=== PATIENT | female | born 1985 ===

== ENCOUNTER → 2020-06-21 08:40 | Outpatient (BNVA) | payer MEDICAID, SELFPAY | PROVIDERS: PCP Physician Assistant; Visit Provider Internal Medicine Gastroenterology | DX: Z76.89 Persons encountering health services in other specified circumstances (principal) ==

== ENCOUNTER → 2020-06-22 09:54 | Outpatient (BNVA) | payer MEDICAID, SELFPAY | PROVIDERS: PCP Physician Assistant; Referring Provider Physician Assistant; Visit Provider Internal Medicine Gastroenterology | DX: Z11.0 Encounter for screening for intestinal infectious diseases (principal) | CPT/HCPCS: 99211 ==

== ENCOUNTER 2020-06-22 15:28 | Outpatient (REF) | payer MEDICAID, SELFPAY ==
[2020-06-23 13:31] LABS: H Pylori Breath Test DETECTED (NOT DETECTED)
== END 2020-06-22 15:29 | disposition home or self-care (01) ==
LOC: HO.LNP 15:28
PROVIDERS: Visit Provider Internal Medicine Gastroenterology
DX: R10.9 Unspecified abdominal pain (principal)
CPT/HCPCS: 83013

== ENCOUNTER → 2020-07-16 10:37 | Outpatient (BNVA) | payer MEDICAID, SELFPAY | PROVIDERS: PCP Physician Assistant; Referring Provider Physician Assistant; Visit Provider Internal Medicine Endocrinology, Diabetes & Metabolism | DX: Z13.89 Encounter for screening for other disorder (principal) | CPT/HCPCS: 99212 ==

== ENCOUNTER 2020-07-18 10:53 | Outpatient (REF) | payer MEDICAID, SELFPAY ==
[2020-07-18 12:56] LABS: Alanine Aminotransferase 21 U/L (0-31); Albumin Level 3.8 g/dL (3.5-5.0); Alkaline Phosphatase 79 U/L (39-117); Anion Gap 11 (12-20); Aspartate Amino Transferase 15 U/L (5-31); Bilirubin Total 0.3 mg/dL (0.0-1.0); Blood Urea Nitrogen 7 mg/dL (9-16); Calcium 8.8 mg/dL (8.4-10.2); Carbon Dioxide 26 mmol/L (22-29); Chloride 105 mmol/L (96-108); Estimated Glomerular Filt Rate > 60; Glucose Random 102 mg/dL (60-115); Potassium 4.1 mmol/l (3.3-5.1); Sodium 138 mmol/L (135-145); Total Protein 6.4 g/dL (6.5-8.0)
== END 2020-07-18 10:54 | disposition home or self-care (01) ==
LOC: HO.LAB 10:53
PROVIDERS: Visit Provider Internal Medicine Endocrinology, Diabetes & Metabolism
DX: E27.40 Unspecified adrenocortical insufficiency (principal)
CPT/HCPCS: 80053

== ENCOUNTER 2020-09-11 10:18 | Outpatient (REF) | payer MEDICAID, SELFPAY ==
[2020-09-12 14:18] LABS: H Pylori Breath Test DETECTED (NOT DETECTED)
== END 2020-09-11 10:19 | disposition home or self-care (01) ==
LOC: HO.LNP 10:18
PROVIDERS: PCP Physician Assistant; Visit Provider Internal Medicine Gastroenterology
DX: A04.8 Other specified bacterial intestinal infections (principal)
CPT/HCPCS: 83013; 99211

== ENCOUNTER 2020-10-31 08:11 | Outpatient (REF) | payer MEDICAID, SELFPAY ==
--- NOTE | ~2020-10-31 | US_ITS ---
EXAMINATION: US ABDOMEN COMPLETE CLINICAL INFORMATION: Right upper quadrant pain x1 month. COMPARISON: None TECHNIQUE: Real-time imaging of the abdominal viscera. FINDINGS: PANCREAS: Normal. ABDOMINAL AORTA: The proximal, mid, and distal segments are normal in caliber. INFERIOR VENA CAVA: Visualized portions are normal. LIVER: The liver is normal in size. The liver contour is normal. Parenchymal echogenicity may be slightly increased.. No focal hepatic lesion. There is no intrahepatic biliary duct dilatation seen. GALLBLADDER: Normal. The gallbladder is physiologically distended without evidence of stones, sludge, polyps, wall thickening or pericholecystic fluid. COMMON BILE DUCT: Normal in caliber measuring 0.28 cm in diameter. RIGHT KIDNEY: There is a 1.3 cm cyst in the midpole. No hydronephrosis or renal calculi. The kidney measures 10.9 cm in maximum dimension. LEFT KIDNEY: Normal. No hydronephrosis. No renal calculi or focal parenchymal lesions. The kidney measures 10.0 cm in maximum dimension. SPLEEN: Normal The spleen measures 6.9 cm in maximum dimension. FREE FLUID: None. US/US abdomen complete IMPRESSION: Slightly echogenic liver. Small right renal cyst.
== END 2020-10-31 08:12 | disposition home or self-care (01) ==
LOC: HO.HMGCX 08:11
PROVIDERS: Visit Provider Internal Medicine Gastroenterology
DX: R10.11 Right upper quadrant pain (principal); G89.29 Other chronic pain
CPT/HCPCS: 76700

== ENCOUNTER → 2020-11-08 11:31 | Outpatient (BNVA) | payer MEDICAID, SELFPAY | PROVIDERS: PCP Physician Assistant; Visit Provider Internal Medicine Endocrinology, Diabetes & Metabolism | DX: E27.40 Unspecified adrenocortical insufficiency (principal); E55.9 Vitamin D deficiency, unspecified; M85.80 Other specified disorders of bone density and structure, unspecified site; Z86.39 Personal history of other endocrine, nutritional and metabolic disease | CPT/HCPCS: 99212 ==

== ENCOUNTER 2020-11-08 12:09 | Outpatient (REF) | payer MEDICAID, SELFPAY ==
[2020-11-08 13:30] LABS: Alanine Aminotransferase 28 U/L (0-31); Albumin Level 3.8 g/dL (3.5-5.0); Alkaline Phosphatase 68 U/L (39-117); Anion Gap 11 (12-20); Aspartate Amino Transferase 21 U/L (5-31); Bilirubin Total 0.5 mg/dL (0.0-1.0); Blood Urea Nitrogen 8 mg/dL (9-16); Calcium 9.2 mg/dL (8.4-10.2); Carbon Dioxide 23 mmol/L (22-29); Chloride 110 mmol/L (96-108); Estimated Glomerular Filt Rate > 60; Glucose Random 78 mg/dL (60-115); Sodium 140 mmol/L (135-145); Total Protein 6.2 g/dL (6.5-8.0)
[2020-11-08 13:53] LABS: Vitamin D 25-OH Total 27.8 ng/mL (>30)
== END 2020-11-08 12:10 | disposition home or self-care (01) ==
LOC: HO.10HDL 12:09
PROVIDERS: Visit Provider Internal Medicine Endocrinology, Diabetes & Metabolism
DX: E27.40 Unspecified adrenocortical insufficiency (principal)
CPT/HCPCS: 36415; 80053; 82306

== ENCOUNTER 2020-11-26 | Outpatient (REF) | payer MEDICAID, SELFPAY ==
[2020-11-28 14:16] LABS: H Pylori Breath Test NOT DETECTED (NOT DETECTED)
== END 2020-11-26 00:01 | disposition home or self-care (01) ==
LOC: HO.LNP
PROVIDERS: Visit Provider Internal Medicine Gastroenterology
DX: R10.13 Epigastric pain (principal); Z11.0 Encounter for screening for intestinal infectious diseases
CPT/HCPCS: 83013

== ENCOUNTER 2020-11-26 11:37 | Outpatient (REF) | payer MEDICAID, SELFPAY | END 2020-11-26 11:38 | disposition home or self-care (01) | LOC: CF 11:37 | PROVIDERS: PCP Physician Assistant; Visit Provider Internal Medicine Gastroenterology | DX: R10.13 Epigastric pain (principal) | CPT/HCPCS: 83013; 99212 ==

== ENCOUNTER 2021-01-01 10:31 | Outpatient (REF) | payer MEDICAID, SELFPAY ==
[2021-01-01 11:48] LABS: Glucose Urine UA NEG (NEG); Leukocyte Esterase Urine NEG (NEG); Nitrite Urine NEG (NEG); PH 5.5 (5.0-8.0); Specific Gravity - Urine >= 1.030 (1.005-1.025); Urine Blood NEG (NEG); Urine Ketones NEG (NEG); Urine Protein NEG (NEG-TRACE)
[2021-01-01 11:53] LABS: Appearance Urine HAZY; Color Urine YELLOW
[2021-01-01 12:27] LABS: Alanine Aminotransferase 22 U/L (0-31); Albumin Level 4.1 g/dL (3.5-5.0); Alkaline Phosphatase 88 U/L (39-117); Anion Gap 14 (12-20); Aspartate Amino Transferase 15 U/L (5-31); Bilirubin Total 0.4 mg/dL (0.0-1.0); Blood Urea Nitrogen 7 mg/dL (9-16); Calcium 9.9 mg/dL (8.4-10.2); Carbon Dioxide 22 mmol/L (22-29); Chloride 107 mmol/L (96-108); Estimated Glomerular Filt Rate > 60; Glucose Random 120 mg/dL (60-115); Potassium 4.2 mmol/L (3.3-5.1); Sodium 139 mmol/L (135-145)
[2021-01-01 12:42] LABS: Vitamin D 25-OH Total 26.6 ng/mL (>30)
== END 2021-01-01 10:32 | disposition home or self-care (01) ==
LOC: HO.LAB 10:31
PROVIDERS: Internal Medicine Endocrinology, Diabetes & Metabolism; Visit Provider Internal Medicine Gastroenterology
DX: E27.40 Unspecified adrenocortical insufficiency (principal); R30.0 Dysuria; R10.13 Epigastric pain; E55.9 Vitamin D deficiency, unspecified; Z01.82 Encounter for allergy testing
CPT/HCPCS: 36415; 80053; 81003; 82306; 86003

== ENCOUNTER → 2021-01-04 07:43 | Outpatient (REF) | payer MEDICAID, SELFPAY ==
--- NOTE | ~2021-01-04 | NM_ITS ---
EXAMINATION: NM RADIONUCLIDE SOLID FOOD GASTRIC EMPTYING 4-HOUR STUDY CLINICAL INFORMATION: Early satiety. COMPARISON: None TECHNIQUE: A standard meal consisting of 4 oz of Egg Beaters brand tagged with 0.75 microcuries Tc-99m Sulfur Colloid, 8 oz water and 2 slices of toast with jelly was administered orally to the patient. Images were obtained using a dual head gamma camera in the anterior and posterior projections over of the stomach immediately post ingestion and at hourly intervals up to 4 hours post ingestion. The anterior and posterior counts at each time interval were averaged using the geometric mean and expressed as percentage of the immediate post ingestion counts. FINDINGS: There is good visualization of activity in the stomach immediately post ingestion. As the study progresses, there is good clearance of activity from the stomach and visualization of progressively increasing small bowel activity. By the end of the study, there is almost no retention noted in the stomach. Retention in the stomach at each time interval was: 1 hour 79% (normal 37%-90%) 2 hours 56% (normal 30%-60%) 3 hours 22% 4 hours 6% (normal 0%-10%) NM/NM gastric emptying study IMPRESSION: Normal 4-hour solid food gastric emptying study.
== END ==
LOC: HO.NUCMED 07:43
PROVIDERS: Visit Provider Internal Medicine Gastroenterology
DX: R68.81 Early satiety (principal)
CPT/HCPCS: 78264; A9541

== ENCOUNTER → 2021-02-08 08:56 | Outpatient (BNVA) | payer MEDICAID, SELFPAY | PROVIDERS: Visit Provider Internal Medicine Gastroenterology ==

== ENCOUNTER → 2021-02-11 10:04 | Outpatient (BNVA) | payer MEDICAID, SELFPAY | PROVIDERS: Visit Provider Internal Medicine Endocrinology, Diabetes & Metabolism ==

== ENCOUNTER 2021-02-25 11:26 | Day surgery (SDC) | payer MEDICAID, SELFPAY ==
[2021-02-19 13:47] VITALS: BMI 28.0
--- NOTE | 2021-02-21 12:40 | HO.ANESPROP2 ---
HPI - Anesthesia Eval Consult details Narrative: 35yo F for Upper Endoscopy needs stress steroid dose per endocrine - [place]/Adrenal insufficiency s/p partial adrenalectomy - prednisone daily, recent decrease from 20mg to 4mg daily chronic prn opioids PMFSH Active Problems Active Problems: All Active Problems (Updated 02/19/21 @ 13:34 by Payton Borges) Chronic RUQ pain (Acute) Epigastric abdominal pain (Acute) Osteopenia (Acute) Vitamin D deficiency (Acute) History of Juanis's syndrome (Acute) Adrenal insufficiency (Acute) Past Medical History Medical History Adrenal insufficiency Back pain Cervical disc disease Depression Fibromyalgia History of Juanis's syndrome Nephrolithiasis Osteopenia PTSD (post-traumatic stress disorder) Vitamin D deficiency Family History Family History Father No problems noted. Surgical History Surgical History H/O esophagogastroduodenoscopy History of loop electrical excision procedure (LEEP) Hx of hysterectomy Hx of partial adrenalectomy Hx of tubal ligation Social History Social History Household Members: Children Alcohol intake: never Patient Tobacco Use Status: Current everyday Tobacco user Tobacco use type: Cigarette Cigarette Packs Per Day: 0.75 Cigarettes Per Day: 15.0 Years Smoked: 15 Meds Allergies Allergy/AdvReac Type Severity Reaction Status Date / Time ibuprofen Allergy Mild shortness Verified 11/26/20 11:52 of breathe, stomach irritation Home Medications Medication Instructions Recorded Confirmed Last Taken Type oxycodone-acetaminophen 10 mg-325 1 tab PO TID PRN 02/08/21 02/19/21 Unknown History mg tablet prednisone 4 mg PO DAILY 02/19/21 02/19/21 Unknown History Exam Exam Date and Time: February 21, 2021 1240 Height,Weight and Vital Signs: Height 5 ft 4 in Weight 74 kg Pertinent Lab Results Pertinent Lab Results: Laboratory Tests 09/20/18 01/01/21 17:37 10:42 WBC 10.4 Hgb 14.6 Hct 43.9 Plt Count 421 H Sodium 139 Potassium 4.2 Chloride 107 Carbon Dioxide 22 BUN 7 L Creatinine 0.80 Assessment and Plan Assessment Anesthesia Assessment: Chart Reviewed
[2021-02-25 11:40] VITALS: BP 110/74; PULSE 112; RESP 20; TEMP 36.6; O2SAT 99
--- NOTE | 2021-02-25 11:48 | HO.ANESPROP2 ---
[facility] Active Problems Active Problems: All Active Problems (Updated 02/19/21 @ 13:34 by Payton Borges) Chronic RUQ pain (Acute) Epigastric abdominal pain (Acute) Osteopenia (Acute) Vitamin D deficiency (Acute) History of Juanis's syndrome (Acute) Adrenal insufficiency (Acute) Past Medical History Medical History Adrenal insufficiency Back pain Cervical disc disease Depression Fibromyalgia History of [place]'s syndrome Nephrolithiasis Osteopenia PTSD (post-traumatic stress disorder) Vitamin D deficiency Family History Family History Father No problems noted. Surgical History Surgical History H/O esophagogastroduodenoscopy History of loop electrical excision procedure (LEEP) Hx of hysterectomy Hx of partial adrenalectomy Hx of tubal ligation Social History Social History Household Members: Children Alcohol intake: never Patient Tobacco Use Status: Current everyday Tobacco user Tobacco use type: Cigarette Cigarette Packs Per Day: 0.75 Cigarettes Per Day: 15.0 Years Smoked: 15 Smoked in Last 30 Days: Yes Use of substances other than those prescribed or required for medical reasons: No Are you DNR?: No Advance Directives Information Provided: No Recently lost weight without trying: No Eating poorly because of decreased appetite: No Nutrition Risks: No Nutritional Risk Patient : No FDLMP: hysterectomy Meds Allergies Allergy/AdvReac Type Severity Reaction Status Date / Time ibuprofen Allergy Mild shortness Verified 11/26/20 11:52 of breathe, stomach irritation Active Medications: Current Medications Generic Name Dose Route Start Last Admin Trade Name Freq PRN Reason Stop Dose Admin Albuterol Sulfate 2.5 mg 02/25/21 11:33 Albuterol Sulfate (0.083%) 2.5 Mg/3 Ml Vial.Neb INHALE ONCE PRN Shortness of Breath/Wheezing Lactated Ringer's 1,000 mls @ 100 mls/hr 02/25/21 11:45 Lr IVCONT .Q10H ALISON Home Medications Medication Instructions Recorded Confirmed Last Taken Type oxycodone-acetaminophen 10 mg-325 1 tab PO TID PRN 02/08/21 02/19/21 Unknown History mg tablet prednisone 4 mg PO DAILY 02/19/21 02/19/21 Unknown History Exam Exam Date and Time: February 25, 2021 1148 Height,Weight and Vital Signs: Height 5 ft 4 in Weight 74 kg Airway Mallampati Class: II TM Dist: >3cm Neck ROM: Full Heart: RRR Lungs: CTA
[2021-02-25] MEDS: Lactated Ringers 1,000 ML 100 ML IVCONT (12:09)
--- NOTE | 2021-02-25 12:10 | PC.NURSE ---
ls clear nad pwd no meds taken today stuffy nose from allergies negative covid 02/21
--- NOTE | 2021-02-25 12:38 | MHC.SHP ---
Pre-Procedural Eval Section B Chief Complaint: epigastric pain Relevant Family History (Specify if Yes): No Relevant Social History: Tobacco Use Present Medications: see Short Stay Collaborative assessment Medical History: Significant History (Adrenal insufficiency Back pain Cervical disc disease Depression Fibromyalgia History of [place]'s syndrome Nephrolithiasis Osteopenia PTSD (post-traumatic stress disorder) Vitamin D deficiency) History of Previous Operations: Relevant previous surgery/procedure and date(s) (H/O esophagogastroduodenoscopy History of loop electrical excision procedure (LEEP) Hx of hysterectomy Hx of partial adrenalectomy Hx of tubal ligation) Allergies: Allergies Allergy/AdvReac Type Severity Reaction Status Date / Time ibuprofen Allergy Mild shortness Verified 11/26/20 11:52 of breathe, stomach irritation Review of Systems Sugical H&P ROS: Negative: Constitution, Cardiovascular, Respiratory, Neurological, Psychiatric, Hem-Onc, Allergic/Immunologic, Gastrointestinal, Genitourinary, Musculoskeletal, Integumentary, Endocrine and Eyes/Ears/Nose/Throat Exam Surgical H&P Exam: Normal: HEENT, Normal: Heart, Normal: Lungs, Normal: Extremities, Normal: Abdomen, Normal: Skin and Normal: Neurological Plan Diagnosis/Plan: Unchanged I have reviewed the history and physical and performed a pertinent physical examination on my patient. No changes have occurred unless specified.
--- NOTE | 2021-02-25 13:13 | P.BOP_ITS ---
Brief Operative Note Date of Service: 02/25/21 Pre-op diagnosis: epigastric pain with anxiety component Post-op diagnosis: same Procedure: see op note Surgeon: Uzair Taylor MD Anesthesia: MAC Was an Flotation Tender used for this Procedure?: No Estimated blood loss (mL): 0 Condition: stable Disposition: PACU
--- NOTE | 2021-02-25 13:13 | W.PM.OPN ---
Operative Note Operative Note Date of Service: 02/25/21 Narrative: Procedure Description: EGD FLEXIBLE TRANSORAL UPPER GASTROINTESTINAL ENDOSCOPY UPPER ENDOSCOPY Consent: Indications for the procedure and potential complications of bleeding, perforation, reaction to medications and missed diagnosis were discussed with the patient and informed consent was obtained. Instrument: Olympus GIF H 190 J mid size upper endoscope Monitoring: Vital signs and clinical assessment, continuous EKG monitoring, Pulse oximetry, Carbon Dioxide monitoring and blood pressure monitoring were done throughout the procedure. Procedure: The patient was placed in the left lateral decubitis position and pre-procedure medications were administered and a bite block was placed. The endoscope was inserted into the mouth and advanced under direct vision to the third part of duodenum. A careful inspection was made as the upper endoscope was withdrawn including a retroflexed examination of the proximal stomach; Findings and interventions are described below. Findings: Larynx:normal Esophagus: GE junction at 38 cm, diaphragm hiatus at 38 cm, no varices or esophagitis. Stomach: streaky gastric erythema at antrum. Biopsies were obtained. Grade 2 flap valve on retroflexed examination of the cardia. Duodenum: Normal bulb and descending duodenum, bx taken Intervention: Biopsies as noted above Impression/Findings: gastritis PLAN: await bx results receiving treatment for anxiety although GES was normal, stomach motility appeared reduced, might try low fat and low fiber diet, small snacks, avoid overeating
[2021-02-25 13:40] VITALS: BP 97/58; PULSE 102; RESP 16; TEMP 36.2; O2SAT 100
[2021-02-25 13:55] VITALS: BP 103/70; PULSE 98; RESP 18; O2SAT 100
[2021-02-25 14:10] VITALS: BP 108/76; PULSE 94; RESP 20; TEMP 36.9; O2SAT 97
--- NOTE | 2021-02-25 14:25 | HO.POSTANES ---
Post Anesthesia Evaluation Post Anesthesia Evaluation Vital Signs: Vital Signs Temp Pulse Resp BP Pulse Ox 02/25/21 14:10 98.5 F 94 20 108/76 97 02/25/21 13:55 98 18 103/70 100 02/25/21 13:40 97.2 F 102 H 16 97/58 L 100 02/25/21 11:40 98 F 112 H 20 110/74 99 Anesthesia: Monitored Mental Status: Awake Pain Control: Satisfactory Nausea/Vomiting: None Hydration: Adequate Anesthesia-Related Issues: No Anes. Related Issues
== END 2021-02-25 15:05 | disposition home or self-care (01) ==
PROVIDERS: Visit Provider Internal Medicine Gastroenterology
PROC: 0DJ08ZZ Inspection of Upper Intestinal Tract, Via Natural or Artificial Opening Endoscopic (ICD-10-PCS; CPT 43235; principal; 2021-02-25 12:50)
DX: R10.13 Epigastric pain (principal); R10.11 Right upper quadrant pain; G89.29 Other chronic pain; K29.50 Unspecified chronic gastritis without bleeding; K44.9 Diaphragmatic hernia without obstruction or gangrene; E24.9 Cushing's syndrome, unspecified; E27.40 Unspecified adrenocortical insufficiency; E89.6 Postprocedural adrenocortical (-medullary) hypofunction; M85.80 Other specified disorders of bone density and structure, unspecified site; E55.9 Vitamin D deficiency, unspecified; F32.9 Major depressive disorder, single episode, unspecified; F43.10 Post-traumatic stress disorder, unspecified; Z88.8 Allergy status to other drugs, medicaments and biological substances; Z87.442 Personal history of urinary calculi
CPT/HCPCS: 43239; 88305; 88342

== ENCOUNTER 2021-02-26 14:12 | Outpatient (REF) | payer MEDICAID, SELFPAY ==
--- NOTE | ~2021-02-26 | CT_ITS ---
EXAMINATION: CT ENTEROGRAPHY ABDOMEN AND PELVIS WITH CONTRAST CLINICAL INFORMATION: Periumbilical pain COMPARISON: Previous abdominal ultrasound October 2020 TECHNIQUE: Study performed with oral VoLumen (1350 mL) and 480 mL of water to distend the abdomen. The patient was injected with 85 mL Omnipaque 350 intravenous contrast which was administered without adverse effect. Coronal and sagittal reformatted images were obtained at the technologist's workstation. This CT examination was performed using dose optimization techniques as appropriate, variously including the following: *Automated exposure control *Adjustment of mA and/or kV according to patient size (this includes techniques or standardized protocols for targeted exams where dose is matched to indication/reason for exam; i.e. extremities or head) *Use of iterative reconstruction technique DLP: 822 mGy-cm FINDINGS: GASTROINTESTINAL FINDINGS: Stomach: Well-distended and normal in appearance. Small intestine: Satisfactorily distended and normal in appearance. Large intestine: Well-distended and normal in appearance. No perirectal changes demonstrated. The appendix is normal. Additional findings: No abnormal enhancement of the vasa recta or significant mesenteric or retroperitoneal lymphadenopathy is seen. No abdominal abscess or fistulous tract demonstrated. ABDOMINAL AND PELVIC CT FINDINGS: Liver, gallbladder, biliary tract: Normal Pancreas: Normal Spleen: Normal Adrenal glands and kidneys: The adrenal glands are normal. There is a 1 cm cyst in the right kidney. The kidneys are otherwise normal. Ureters and bladder: Normal The uterus has been removed. No pelvic mass is seen. Lymphovascular structures: Normal Bones: There is an old right lateral 10th rib fracture. Lung bases: Normal CT/CT enterography IMPRESSION: Normal enterography exam. Small right renal cyst. Old right lateral 10th rib fracture.
[2021-02-26] MEDS: iohexoL 350 MG/ML 100 ML INFUS..BTL IV (16:08)
== END 2021-02-26 14:13 | disposition home or self-care (01) ==
LOC: HO.US 14:12
PROVIDERS: Visit Provider Internal Medicine Gastroenterology
DX: R10.33 Periumbilical pain (principal)
CPT/HCPCS: 74177; Q9967

== ENCOUNTER → 2021-03-15 10:34 | Outpatient (BNVA) | payer MEDICAID, SELFPAY | PROVIDERS: Visit Provider Internal Medicine Gastroenterology ==

== ENCOUNTER 2021-05-16 | Outpatient (REF) | payer MEDICAID, SELFPAY | END 2021-05-16 00:01 | disposition home or self-care (01) | LOC: HO.LNP | PROVIDERS: Visit Provider Internal Medicine Gastroenterology | DX: R10.13 Epigastric pain (principal); R10.11 Right upper quadrant pain; G89.29 Other chronic pain | CPT/HCPCS: 87338 ==

== ENCOUNTER 2021-08-09 08:56 | Outpatient (REF) | payer MEDICAID, SELFPAY ==
[2021-08-11 13:26] LABS: H Pylori Breath Test Negative (Negative)
== END 2021-08-09 08:57 | disposition home or self-care (01) ==
LOC: HO.LNP 08:56
PROVIDERS: PCP Physician Assistant; Visit Provider Internal Medicine Gastroenterology
DX: Z11.0 Encounter for screening for intestinal infectious diseases (principal)
CPT/HCPCS: 83013

== ENCOUNTER → 2021-10-14 12:05 | Outpatient (BNVA) | payer MEDICAID, SELFPAY | PROVIDERS: PCP Physician Assistant; Visit Provider Internal Medicine | DX: E55.9 Vitamin D deficiency, unspecified (principal); Z86.39 Personal history of other endocrine, nutritional and metabolic disease | CPT/HCPCS: 99212 ==

== ENCOUNTER 2021-10-18 07:29 | Outpatient (REF) | payer MEDICAID, SELFPAY ==
[2021-10-18 08:25] LABS: Alanine Aminotransferase 10 U/L (0-31); Albumin Level 4.3 g/dL (3.5-5.0); Alkaline Phosphatase 76 U/L (39-117); Anion Gap 10 (12-20); Aspartate Amino Transferase 13 U/L (5-31); Bilirubin Total 0.3 mg/dL (0.0-1.0); Blood Urea Nitrogen 12 mg/dL (9-16); Calcium 9.9 mg/dL (8.4-10.2); Carbon Dioxide 25 mmol/L (22-29); Chloride 109 mmol/L (96-108); Estimated Glomerular Filt Rate > 60; Glucose Random 98 mg/dL (60-115); Potassium 4.4 mmol/L (3.3-5.1); Sodium 140 mmol/L (135-145); Total Protein 7.4 g/dL (6.5-8.0)
[2021-10-18 08:46] LABS: Free T4 (Free Thyroxine) 0.97 ng/dL (0.71-1.85)
[2021-10-18 10:39] LABS: Cortisol Random 16.8 ug/dL
[2021-10-19 16:06] LABS: Triiodothyronine T3 Total 133 ng/dL (76-181)
[2021-10-20 16:55] LABS: DHEA Sulfate 20 mcg/dL (23-266)
[2021-10-22 23:56] LABS: Adrenocorticotropic Hormone 50 pg/mL (6-50)
== END 2021-10-18 07:30 | disposition home or self-care (01) ==
LOC: HO.LAB 07:29
PROVIDERS: Visit Provider Internal Medicine
DX: E27.40 Unspecified adrenocortical insufficiency (principal); E55.9 Vitamin D deficiency, unspecified
CPT/HCPCS: 36415; 80053; 82024; 82306; 82533; 82627; 84439; 84443; 84480

== ENCOUNTER 2021-10-21 07:59 | Outpatient (REF) | payer MEDICAID, SELFPAY ==
[2021-10-22 23:27] LABS: Cortisol 30 Minute 24.7 mcg/dL; Cortisol 60 Minute 25.6 mcg/dL; Cortisol Baseline 14.9 mcg/dL
[2021-10-22 23:56] LABS: Adrenocorticotropic Hormone 38 pg/mL (6-50)
== END 2021-10-21 08:00 | disposition home or self-care (01) ==
LOC: HO.MDS 07:59
PROVIDERS: Visit Provider Internal Medicine
DX: E27.40 Unspecified adrenocortical insufficiency (principal); E24.9 Cushing's syndrome, unspecified; M79.7 Fibromyalgia; E55.9 Vitamin D deficiency, unspecified; F43.10 Post-traumatic stress disorder, unspecified
CPT/HCPCS: 36415; 82024; 82533; 96374; J0834

== ENCOUNTER → 2021-11-06 12:52 | Outpatient (BNVA) | payer MEDICAID, SELFPAY | PROVIDERS: PCP Physician Assistant; Visit Provider Internal Medicine Endocrinology, Diabetes & Metabolism | DX: Z86.39 Personal history of other endocrine, nutritional and metabolic disease (principal) | CPT/HCPCS: 99212 ==

== ENCOUNTER 2021-11-19 12:37 | Outpatient (REF) | payer MEDICAID, SELFPAY ==
[2021-11-19 13:09] LABS: MANUAL DIFF FLAG NO
[2021-11-19 13:29] LABS: Basophils Absolute Auto 0.1 X10*3/uL (0.0-0.2); Eosinophils Absolute Auto 0.2 X10*3/uL (0.0-0.4); Eosinophils Percent Auto 2.9 % (0-4); Hematocrit 42.8 % (37.0-47.0); Hemoglobin 13.8 g/dl (12.0-16.0); Imm Gran Abs Auto 0.02 X10*3/uL (0.00-0.03); Imm Gran Pct Auto 0.3 % (0.0-0.4); Lymphocytes Absolute Auto 2.1 X10*3/uL (1.2-4.9); Lymphocytes Percent Auto 30.2 % (20-40); Mean Corpuscular HGB Conc 32.2 g/dl (31.0-35.0); Mean Corpuscular Hemoglobin 28.4 pg (27.0-33.0); Mean Corpuscular Volume 88.1 fL (80.0-98.0); Mean Platelet Volume 9.8 fL (9.4-12.3); Monocytes Absolute Auto 0.7 X10*3/uL (0.1-1.2); Monocytes Percent Auto 10.1 % (2-11); Neutrophils Absolute Auto 3.8 x10*3/uL (2.0-8.3); Neutrophils Percent Auto 55.5 % (45-73); Platelet Count 384 X10*3/uL (160-400); Red Blood Count 4.86 X10*6/uL (4.20-5.50); Red Cell Distribution Width 15.8 % (11.0-16.0); White Blood Count 6.9 X10*3/uL (4.8-10.8)
[2021-11-19 13:53] LABS: Alanine Aminotransferase 15 U/L (0-31); Albumin Level 4.2 g/dL (3.5-5.0); Alkaline Phosphatase 70 U/L (39-117); Anion Gap 13 (12-20); Aspartate Amino Transferase 16 U/L (5-31); Bilirubin Total 0.3 mg/dL (0.0-1.0); Blood Urea Nitrogen 6 mg/dL (9-16); C Reactive Protein 0.06 mg/dL (< or = 0.50); Calcium 9.9 mg/dL (8.4-10.2); Carbon Dioxide 23 mmol/L (22-29); Chloride 110 mmol/L (96-108); Estimated Glomerular Filt Rate > 60; Glucose Random 89 mg/dL (60-115); Iron 105 mcg/dL (30-160); Percent Iron Saturation 33 % (15-50); Phosphorus 3.4 mg/dL (2.7-4.5); Potassium 4.6 mmol/L (3.3-5.1); Sodium 141 mmol/L (135-145); Total Iron Binding Capacity 320 mcg/dL (228-428); Total Protein 7.1 g/dL (6.5-8.0); Unsaturated Iron Binding 215 ug/dL
[2021-11-19 14:14] LABS: Ferritin 23 ng/mL (10-122); TSH reflex Free T4 1.04 uIU/mL (0.32-4.0)
[2021-11-19 14:28] LABS: Erythrocyte Sedimentation Rate 2 MM/HR (0-20)
[2021-11-19 14:54] LABS: Folate 9.6 ng/mL (> or = 4.0); Vitamin B12 316 pg/mL (200-900)
[2021-11-20 04:31] LABS: HBS Num1 244.72 mIU/mL (0-7.99); HBc Num1 0.15 S/CO (0.00-0.79); Hepatitis A Antibody IgM 0.31 Index (0-0.79); Hepatitis B Core Antibody Nonreactive (Nonreactive); ~HepC Num1 0.07 S/CO (0.00-0.79); ~Hepatitis A Antibody IgM Nonreactive (Nonreactive); ~Hepatitis B Surface Antibody REACTIVE (Nonreactive); ~Hepatitis C Antibody Nonreactive (Nonreactive)
[2021-11-20 04:37] LABS: HBsAGNum1 0.19 S/CO (0.00-0.99); Hepatitis B Surface Antigen Negative (Negative)
[2021-11-20 13:32] LABS: Anti Nuclear Antibody Screen NEGATIVE (NEGATIVE)
[2021-11-20 21:22] LABS: IgA 178 mg/dL (47-310); IgG 1125 mg/dL (600-1640); IgM 173 mg/dL (50-300)
[2021-11-20 22:41] LABS: Gliadin Deamidated IgA Ab 3.1 U/mL; Gliadin Deamidated IgG Ab <1.0 U/mL; Transglutaminase Ab IgG <1.0 U/mL; Transglutaminase IgA <1.0 U/mL
[2021-11-22 18:01] LABS: Histamine Plasma <1.5 ng/mL (< OR = 1.8)
[2021-11-24 14:01] LABS: Angiotensin Converting Enzyme 38 U/L (9-67)
== END 2021-11-19 12:38 | disposition home or self-care (01) ==
LOC: HO.LAB 12:37
PROVIDERS: Visit Provider Internal Medicine Gastroenterology
DX: R10.13 Epigastric pain (principal); R63.4 Abnormal weight loss; R19.4 Change in bowel habit; R19.7 Diarrhea, unspecified; G89.29 Other chronic pain; R10.33 Periumbilical pain; R79.82 Elevated C-reactive protein (CRP); K75.81 Nonalcoholic steatohepatitis (NASH)
CPT/HCPCS: 36415; 80053; 82164; 82330; 82607; 82728; 82746; 82784; 83088; 83520; 83540; 84100; 84443; 85025; 85652; 86038; 86039; 86140; 86258; 86364; 86704; 86706; 86709; 86803; 87340

== ENCOUNTER 2021-11-20 11:49 | Outpatient (REF) | payer MEDICAID, SELFPAY ==
[2021-11-20 13:47] LABS: CDiff Gene PCR NEGATIVE (Negative)
[2021-11-26 22:07] LABS: Pancreatic Elastase-1 >500 mcg/g
[2021-11-27 01:51] LABS: Lactoferrin, Fecal, Quant. <30.0 mcg/mL
[2021-11-28 10:02] LABS: Fecal Fat Qualitative NORMAL (NORMAL)
== END 2021-11-20 11:50 | disposition home or self-care (01) ==
LOC: HO.LNP 11:49
PROVIDERS: Visit Provider Internal Medicine Gastroenterology
DX: R13.10 Dysphagia, unspecified (principal); R63.4 Abnormal weight loss; R19.4 Change in bowel habit
CPT/HCPCS: 82656; 82705; 83631; 87045; 87046; 87329; 87338; 87493

== ENCOUNTER 2021-12-06 09:07 | Outpatient (REF) | payer MEDICAID, SELFPAY ==
--- NOTE | ~2021-12-06 | CT_ITS ---
EXAMINATION: CT ABDOMEN AND PELVIS WITH CONTRAST CLINICAL INFORMATION: Epigastric pain COMPARISON: Previous MR of the abdomen October [address] enterography February 2021 TECHNIQUE: Multidetector volumetric images were obtained from the superior aspect of the liver through the pubic symphysis following administration 85 mL of Omnipaque 350 intravenous contrast. Sagittal and coronal reformatted images were obtained on the technologist's workstation. Oral contrast: Yes This CT examination was performed using dose optimization techniques as appropriate, variously including the following: *Automated exposure control *Adjustment of mA and/or kV according to patient size (this includes techniques or standardized protocols for targeted exams where dose is matched to indication/reason for exam; i.e. extremities or head) *Use of iterative reconstruction technique DLP: 264 mGy-cm FINDINGS: LUNG BASES: The visualized lung bases are unremarkable. LIVER, GALLBLADDER, AND BILIARY TREE: There is a 2.5 x 3 cm lesion high in the medial segment of the left lobe of the liver. This is similar to previous MRI. The other liver lesions seen by MRI are not appreciated. The gallbladder is normal. There is no biliary duct dilatation. PANCREAS: Unremarkable. SPLEEN: Unremarkable. ADRENAL GLANDS: The right adrenal gland is unremarkable. The left adrenal gland is not seen. KIDNEYS AND URETERS: There is a 1 cm cyst in the upper pole of the right kidney. No imaging follow-up needed. The kidneys are otherwise normal. BLADDER: Not distended. GASTROINTESTINAL TRACT: There is stool throughout the colon. The small and large bowel are otherwise unremarkable. The appendix is unremarkable. ABDOMINAL WALL: Small umbilical hernia containing fat. LYMPH NODES: Normal. VASCULAR: Unremarkable. PELVIC VISCERA: The uterus appears to have been removed. No pelvic mass. OSSEOUS STRUCTURES: Old right lateral eighth rib fracture. CT/CT abdomen pelvis w con IMPRESSION: Stool throughout the colon suggestive of mild constipation. Small umbilical hernia containing fat. Stable 2.5 x 3 cm liver lesion. Other liver lesions seen by MRI not definitely appreciated. Stable small right renal cyst. Fleischner guidelines were followed.
[2021-12-06] MEDS: iohexoL 350 MG/ML 100 ML INFUS..BTL IV (11:57)
[2021-12-06] MEDS: Barium Sulfate Oral (Vanilla) 450 ML ORAL.SUSP 900 ML PO (11:58)
== END 2021-12-06 09:08 | disposition home or self-care (01) ==
LOC: HO.CT 09:07
PROVIDERS: Visit Provider Internal Medicine Gastroenterology
DX: R10.13 Epigastric pain (principal); R63.4 Abnormal weight loss
CPT/HCPCS: 74177; Q9967

== ENCOUNTER 2024-04-22 11:07 | Outpatient (AMB) | payer MEDICAID, SELFPAY ==
--- NOTE | 2024-04-22 11:09 | MHC.OFFVIS ---
Vital Signs 04/22/24 11:10 Height 5 ft 4 in Weight 145 lb 1.027 oz BMI 24.9 BP 106/60 Blood Pressure Location Lt brachial Position Sitting Pulse 101 H Pulse Source Pulse Oximeter Pulse Oximetry (%) 98 Oxygen Delivery Method Room Air Intake Visit Reasons: Routine Follow Up Intake Note: Pt presents to the office today for a routine follow up. Pt states she is feeling so-so . Pt states she is experiencing acid reflux which happens everyday. She states when she is swallowing she feels like something is getting stuck. 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 being seen for f/u RECAP: last seen 2020 for abdominal pain burning like pressure, nausea nausea, no vomiting appetite is poor, constipation weight is down 5# in 1 month she has gerd and used to take omeprazole, and it helps a little maternal aunt with gastric ca aged 55 she finished triple therapy with levo, amoxil and PPI f/u h pylori breath test still pos she was given quadruple therapy but couldn;t tolerate due to stomach upset also given high dose dual therapy repeat h pylori breath test--neg EGD repeated with gastritis, but no h pylori noted she was given TCA TESTS: MRI abdo 09/2019--[facility] appearance EGD: 01/2020-- gastritis, pos for h pylori, chronic reflux damage to esophagus u/s 10/2020-- fatty liver, no acute lesions GES 12/2020-- normal EGD --antral gastritis, no h pylori, Cte--02/25--normal old rib fracture on right INTERIM: she stopped her meds incl TCA and PPI about 1 yr ago she has trouble with food sticking, carlos solids she feels like a ball in stomach no nausea or vomiting constipation is controlled with linaclotide on percocet for back pain for few years, takes daily smoker 1/2 pack/day EXAM: GENERAL: The patient is well developed and nontoxic. VITAL SIGNS:see workflow HEENT: Nonicteric sclerae, PERRLA, EOMI. Oropharynx clear. Moist mucous membranes. Conjunctivae appear well perfused. No thyroid mass. CHEST: Chest wall is nontender. HEART: Regular rate and rhythm without murmurs. LUNGS: Clear to auscultation bilaterally. ABDOMEN: Soft, positive bowel sounds, nontender, no organomegaly.no flank tenderness SKIN: No rash, no excessive bruising, petechiae, or purpura. NEUROLOGIC: Cranial nerves II-XII intact without motor/sensory deficit. Psych: normal affect` Assessments 1.GERD and dysphagia, maybe due to combo of smoking, and opiate use, might have schatzki ring PLAN: 1/ restart PPI 2/ repeat EGD with dilation 3/ try to limit opiate use and stop smoking PFSH Medical History (Updated 04/22/24 @ 11:44 by Uzair Taylor MD) Post-adrenalectomy adrenal insufficiency Nephrolithiasis Cervical disc disease Depression PTSD (post-traumatic stress disorder) Fibromyalgia Back pain Osteopenia Vitamin D deficiency History of [place]'s syndrome Adrenal insufficiency Surgical History H/O esophagogastroduodenoscopy History of loop electrical excision procedure (LEEP) Hx of hysterectomy Hx of partial adrenalectomy Hx of tubal ligation Family History Father No problems noted. Social History Household Members: Children Alcohol intake: never Patient Tobacco Use Status: Current everyday Tobacco user Tobacco use type: Cigarette Cigarette Packs Per Day: 0.75 Cigarettes Per Day: 15.0 Years Smoked: 15 Physical Exam Vital Signs: Last Vital Signs Pulse 101 H 04/22/24 11:10 BP 106/60 04/22/24 11:10 Pulse Ox 98 04/22/24 11:10 Oxygen Delivery Method Room Air 04/22/24 11:10 BMI result Body Mass Index 24.9 Assessment & Plan Assessment & Plan (1) GERD (gastroesophageal reflux disease): Code(s): K21.9 - Gastro-esophageal reflux disease without esophagitis Category: Medical Plan: see above Medications: New pantoprazole 40 mg PO DAILY 90 tabs 1RF Coding Level of Care Code Est Pt Level 3 (97328) Diagnoses GERD (gastroesophageal reflux disease) K21.9
[2024-04-22 11:10] VITALS: BP 106/60; PULSE 101; O2SAT 98; BMI 24.9
== END 2024-04-22 11:43 | disposition home or self-care (01) ==
PROVIDERS: PCP Physician Assistant; Visit Provider Internal Medicine Gastroenterology
DX: K21.9 Gastro-esophageal reflux disease without esophagitis (principal)
CPT/HCPCS: 99213

== ENCOUNTER → 2024-04-22 11:07 | Outpatient (BNVA) | payer MEDICAID, SELFPAY | PROVIDERS: PCP Physician Assistant; Visit Provider Internal Medicine Gastroenterology | DX: K21.9 Gastro-esophageal reflux disease without esophagitis (principal); R09.A2 Foreign body sensation, throat | CPT/HCPCS: 99212 ==